=== PATIENT | male | born 1950 | race Caucasian/White ===

== ENCOUNTER 2020-05-04 08:45 | Outpatient (CLI) | payer MEDICARE ==
--- NOTE | 2020-05-04 09:14 | ULT ---
Ultrasound of theabdominal aorta: 05/04/2020 COMPARISON:None available HISTORY:Screening for abdominal aortic aneurysm TECHNIQUE: Multiplanar grayscale sonographic imaging of theabdominal aorta provided. Images include D oppler interrogation with color flow and spectral analysis. FINDINGS:The abdominal aorta proximally measures 1.9 x 2.0 cm, the mid abdominal aorta measures 1.8 x 1.6 cm, and the distal abdominal aorta measures 1.7 x 1.6 cm. Provided imaging demonstrates no evidence for abdominal aortic aneurysm. Left common iliac artery measures in the 7 mm range and right common iliac artery measures in the 8 mm range. IMPRESSION:No sonographic evidence of abdominal aortic aneurysm.
== END 2020-05-04 08:46 | disposition home or self-care (01) ==
LOC: SCSULT 08:45
PROVIDERS: ATTEND Family Medicine Sports Medicine
DX: Z13.6 Encounter for screening for cardiovascular disorders (principal)
CPT/HCPCS: 76775